=== PATIENT | male | born 1985 | race Caucasian/White ===

== ENCOUNTER 2018-04-25 16:41 | Emergency (ER) | payer MEDICAID, OTHER ==
--- NOTE | 2018-04-25 18:42 | EDPHY ---
H & P Stated Complaint: 2 days of keft leg tingling and numbness. Time Seen by Provider: 04/25/18 18:28 - Personal History Current Tetanus Diphtheria and Acellular Pertussis (TDAP): Unsure Tetanus Vaccine Date: does not know, but says it is up to date - Medical/Surgical History Hx Asthma: No Hx Chronic Respiratory Disease: No Hx Diabetes: No Hx Cardiac Disease: No Hx Renal Disease: No Hx Cirrhosis: No Hx Alcoholism: No Hx HIV/AIDS: No Hx Splenectomy or Spleen Trauma: No Other PMH: Major depressive disorder. - Social History Smoking Status: Current some day smoker Constitutional: Initial Vital Signs Temperature (C) 36.6 C 04/25/18 16:49 Heart Rate 85 04/25/18 16:49 Respiratory Rate 16 04/25/18 16:49 Blood Pressure 108/93 H 04/25/18 16:49 O2 Sat (%) 95 04/25/18 16:49 O2 Delivery Mode Room Air Allergies/Adverse Reactions: amoxicillin trihydrate [From Augmentin] Allergy (Unknown, Verified 04/12/11 10: 23) Penicillins Allergy (Unknown, Verified 04/12/11 10:23) potassium clavula *RETIRED-03/10/12 [From Augmentin] Allergy (Unknown, Verified 04/12/11 10:23) Home Medications: Medication Instructions Recorded Dextroamphetamine/Amphetamine 20 mg PO DAILY 10/15/11 [Adderall Xr 20 mg Capsule] Pharmacy Completed 10/15/11 10/15/11 Clonazepam 04/25/18 Effexor Xr 04/25/18 Metoprolol Succinate 04/25/18 methylPREDNISolone [Medrol Dose 1 each PO AD #1 ea 04/25/18 Ramos] oxyCODONE IR [Oxycodone Ir (*)] 5 mg PO Q4-6PRN PRN #20 tab 04/25/18 Medical Decision Making - Diagnostics Imaging Results: Imaging Impressions Lumbar Spine MRI 04/25/18 18:33 Impression: Limited study due to motion. 1. Left paracentral disk protrusion within the lateral recess of L5-S1. 2. Degenerative disk disease at L4-L5 causing mild spinal canal stenosis and mild right neural foraminal narrowing. Findings and recommendations discussed with Jesse Goodman MD at 2016 hour, . Imaging: Discussed imaging studies w/ call center associate Radiologist, I viewed and interpreted images myself ED Course/Re-evaluation: CHIEF COMPLAINT: Left leg numbness and tingling. HISTORY OF PRESENT ILLNESS: Healthy 33-year-old male who denies any recent injury. He denies any specific back pain. He is having numbness in his left leg from the hip down to the knee. It is painful also. He denies any symptoms below the knee. He can walk normally. He endorses a family history of factor 5 Leiden deficiency he does not know if he has this or not. He denies any foot drop. Denies any fevers chills. He has not any recent instrumentation of his back. REVIEW OF SYSTEMS: A comprehensive 10 system review of systems is otherwise negative aside from elements mentioned in the history of present illness and medical decision making. PHYSICAL EXAM: HR, BP, O2 Sat, RR. Temp noted General Appearance: Alert, well hydrated, appropriate, and non-toxic appearing. Head: Atraumatic without scalp tenderness or obvious injury Eyes: Pupils equal, round, reactive to light and accommodation, EOMI, no trauma , no injection. Ears: Clear bilaterally, no perforation, normal landmarks Nose: Atraumatic, no rhinorrhea, clear. Throat: There is no erythema or exudates, no lesions, normal tonsils, mucus membranes moist. Neck: Supple, 2+ carotid upstroke, nontender, no lymphadenopathy. Respiratory: No retractions, no distress, no wheezes, and no accessory muscle use. Lungs are clear to auscultation bilaterally. Cardiovascular: Regular rate and rhythm, no murmurs, rubs, or gallops. Bilateral carotid, radial, dorsalis pedis, and posterior tibial pulses intact. Good capillary refill all extremities. Gastrointestinal: Abdomen is soft, nontender, non-distended, no masses, no rebound, no guarding, no peritoneal signs. Musculoskeletal: Normal active ROM of all extremities, atraumatic. Neurological: Numbness from hip to left knee with no obvious motor deficits. Normal dorsalis pedis and posterior tibial pulses. No evidence of arterial insufficiency. No evidence of swelling or venous insufficiency. Alert, appropriate, and interactive. The patient has normal DTRs and non-focal cranial nerves, motor, sensory, and cerebellar exam. Skin: No rashes, good turgor, no nodules on palpation. Past medical history: Patient denies Past surgical history: Noncontributory Family history: Noncontributory except for factor 5 Leiden deficiency Social history: Single, employed, does not abuse tobacco drugs or alcohol DIAGNOSTICS/PROCEDURES/CRITICAL CARE TIME: Study: MRI of the: Spine Indication: Neurologic deficits Results: MRI scan of the lumbar spine was obtained. The results of the study reveal an L5-S1 disc herniation. The study was read by the radiologist, Dr. Srivastava. I viewed the images myself on the PACS system. DIFFERENTIAL DIAGNOSIS: The differential diagnosis for the patient's neurologic deficits included but was not limited to peripheral causes, central causes including CVA, TIA, electrolyte abnormalities and dehydration, cardiogenic causes, atypical causes like migraine syndrome. MEDICAL DECISION MAKING: This patient seems like he may have a impinged nerve left lumbar possibly at the L3 4 level. Does not go below his knee. He has no fevers am not worried about an abscess or epidural hematoma. He denies any trauma. He does not have any significant motor deficit. His symptoms are progressing for 2 days. I will also run hypercoagulability panel on make sure he does not have a factor 5 Leiden deficiency. MRI is pending. 2017: I spoke with Dr. Srivastava, radiologist, regarding patient's MRI. Patient has an L5-S1 disc herniation 2024: Reassessed patient and discussed imaging studies. 40mg PO prednisone administered. I have prescribed him a Medrol dose pack and hydrocodone. I have also advised him to follow up with a neurosurgeon. His hypercoagulation panel is still pending. Return precautions provided; patient is comfortable with this plan. - Data Points Laboratory Results: Laboratory Results 04/25/18 18:56 04/25/18 18:56 04/25/18 04/25/18 04/25/18 18:56 18:56 18:56 WBC 10.35 10^3/uL H 10^3/uL (3.80-9.50) RBC 5.05 10^6/uL 10^6/uL (4.40-6.38) Hgb 16.2 g/dL g/dL (13.7-17.5) Hct 44.8 % % (40.0-51.0) MCV 88.7 fL fL (81.5-99.8) MCH 32.1 pg pg (27.9-34.1) MCHC 36.2 g/dL g/dL (32.4-36.7) RDW 11.9 % % (11.5-15.2) Plt Count 292 10^3/uL 10^3/uL (150-400) MPV 10.6 fL fL (8.7-11.7) Neut % (Auto) 64.3 % % (39.3-74.2) Lymph % (Auto) 26.4 % % (15.0-45.0) Morrison % (Auto) 8.0 % % (4.5-13.0) Eos % (Auto) 0.7 % % (0.6-7.6) Baso % (Auto) 0.2 % L % (0.3-1.7) Nucleat RBC Rel Count 0.0 % % (0.0-0.2) Absolute Neuts (auto) 6.66 10^3/uL H 10^3/uL (1.70-6.50) Absolute Lymphs (auto) 2.73 10^3/uL 10^3/uL (1.00-3.00) Absolute Monos (auto) 0.83 10^3/uL H 10^3/uL (0.30-0.80) Absolute Eos (auto) 0.07 10^3/uL 10^3/uL (0.03-0.40) Absolute Basos (auto) 0.02 10^3/uL 10^3/uL (0.02-0.10) Absolute Nucleated RBC 0.00 10^3/uL 10^3/uL (0-0.01) Immature Gran % 0.4 % % (0.0-1.1) Immature Gran # 0.04 10^3/uL 10^3/uL (0.00-0.10) PT INR APTT Fibrinogen D-Dimer Protein C Activity Pending Protein S Activity Pending Antithrombin III Activ Pending Factor V Leiden Mutat Pending Factor V Leiden Interp Pending Fact V Leiden Review By Pending Sodium 136 mEq/L mEq/L (135-145) Potassium 3.8 mEq/L mEq/L (3.3-5.0) Chloride 97 mEq/L mEq/L (97-110) Carbon Dioxide 26 mEq/l mEq/l (22-31) Anion Gap 13 mEq/L mEq/L (6-14) BUN 13 mg/dL mg/dL (7-23) Creatinine 1.1 mg/dL mg/dL (0.7-1.3) Estimated GFR > 60 Glucose 78 mg/dL mg/dL (70-100) Calcium 9.8 mg/dL mg/dL (8.5-10.4) Anti-Cardiolipin IgG Ab Pending Anti-Cardiolipin IgM Ab Pending 04/25/18 18:56 WBC RBC Hgb Hct MCV MCH MCHC RDW Plt Count MPV Neut % (Auto) Lymph % (Auto) Morrison % (Auto) Eos % (Auto) Baso % (Auto) Nucleat RBC Rel Count Absolute Neuts (auto) Absolute Lymphs (auto) Absolute Monos (auto) Absolute Eos (auto) Absolute Basos (auto) Absolute Nucleated RBC Immature Gran % Immature Gran # PT 13.5 SEC SEC (12.0-15.0) INR 1.01 (0.83-1.16) APTT 27.2 SEC SEC (23.0-38.0) Fibrinogen 217 mg/dL mg/dL (214-456) D-Dimer < 0.27 ug/mLFEU ug/mLFEU (0.00-0.50) Protein C Activity Protein S Activity Antithrombin III Activ Factor V Leiden Mutat Factor V Leiden Interp Fact V Leiden Review By Sodium Potassium Chloride Carbon Dioxide Anion Gap BUN Creatinine Estimated GFR Glucose Calcium Anti-Cardiolipin IgG Ab Anti-Cardiolipin IgM Ab Departure - Departure Disposition: Home, Routine, Self-Care Clinical Impression: Lumbar disc herniation Condition: Good Instructions: Lumbar Disc Herniation (ED) Additional Instructions: 1. Take the Medrol dose pack as prescribed. 2. Take hydrocodone as prescribed for severe pain. 3. Followup with a podiatric foot and ankle specialist within one week. 4. Return to the emergency department for severe pain, fever, numbness, difficulty walking, change in location or nature of pain or other concerns. 5. Try using a heating pad. 6. Your hypercoagulation panels are still pending. Referrals: Wild Diallo MD [Medical Doctor] - As per Instructions Prescriptions: methylPREDNISolone [Medrol Dose Ramos] 1 each PO AD #1 ea oxyCODONE IR [Oxycodone Ir (*)] 5 mg PO Q4-6PRN PRN #20 tab PRN Reason: Pain, Moderate
[2018-04-25 19:19] LABS: PLATELET COUNT 292 10^3/uL (150-400)
[2018-04-25 19:31] LABS: INR 1.01 (0.83-1.16)
[2018-04-25 19:49] LABS: PROTIME(PATIENT) 13.5 SEC (12.0-15.0)
[2018-04-25] MEDS ORDERED: HYDROCOD/APAP 5/325 PREPACK#6 BTL TAKEHOME ONE (20:19)
[2018-04-25] MEDS ORDERED: predniSONE 20 MG TAB PO ONE (20:19)
[2018-04-25 20:40] VITALS: BP 149/73
== END 2018-04-25 20:40 | disposition home or self-care (01) ==
DX: M51.27 Other intervertebral disc displacement, lumbosacral region (principal); M51.36 Other intervertebral disc degeneration, lumbar region; F17.210 Nicotine dependence, cigarettes, uncomplicated; Z88.0 Allergy status to penicillin
CPT/HCPCS: 85300-90; 85303-90; 85306-90; 86147-90; J7512